=== PATIENT | male | born 1980 | race African-American/Black ===

== ENCOUNTER 2024-02-24 11:00 | Emergency (ER) | payer MEDICAID ==
[~2024-02-24] VITALS: Ht 182.9 cm; Wt 65.0 kg
[2024-02-24 11:09] VITALS: TEMP 98.4; O2SAT 100
[2024-02-24 13:19] LABS: BASOPHILS % 0.7 % (0.0-2.0); DIFFERENTIAL COMMENT 0; EOSINOPHILS % 2.5 % (0.0-5.0); HEMATOCRIT. 42.6 % (42.0-52.0); LYMPHOCYTES % 32.7 % (20.0-50.0); MEAN CORPUSCULAR HEMOGLOBIN 29.4 pg (28.0-32.0); MEAN CORPUSCULAR HGB CONC 32.9 g/dL (31.0-37.0); MEAN CORPUSCULAR VOLUME 89.5 fL (80.0-94.0); MEAN PLATELET VOLUME 10.1 fl (7.4-10.4); MONOCYTES % 8.5 % (2.0-8.0); NEUTROPHILS % 55.6 % (40.0-76.0); PLATELET 143 x1000/uL (130-400); RED BLOOD CELL COUNT 4.76 mill/uL (4.7-6.1); RED CELL DISTRIBUTION WIDTH 15.1 % (11.6-14.6); WHITE BLOOD COUNT 5.9 x1000/uL (4.5-11.0)
[2024-02-24 15:00] LABS: CALCIUM 9.3 mg/dL (8.7-10.4); CARBON DIOXIDE 26 mEq/L (21-32)
[2024-02-24 15:03] LABS: CHLORIDE 108 mEq/L (98-107); POTASSIUM 4.2 mEq/L (3.5-5.1); SODIUM 142 mEq/L (136-145)
[2024-02-24 15:05] LABS: CREATININE 1.1 mg/dL (0.6-1.3); GLUCOSE 78 mg/dL (70-105); UREA NITROGEN BLOOD 6 mg/dL (9-23)
[2024-02-24] MEDS: TRAMADOL 50MG TABLET PO NR (15:05)
[2024-02-24] MEDS: IBUPROFEN 600MG TABLET PO NR (15:05)
[2024-02-24 15:10] VITALS: BP 142/85; PULSE 63; RESP 16; O2SAT 100
[2024-02-24] MEDS ORDERED: TRAM-534 MT (16:09)
== END 2024-02-24 16:30 | disposition home or self-care (01) ==
LOC: ER 11:30
DX: M79.601 Pain in right arm (principal); R51.9 Headache, unspecified; Z86.73 Personal history of transient ischemic attack (TIA), and cerebral infarction without residual deficits
CPT/HCPCS: 36415; 80048; 85025; 99284

== ENCOUNTER 2024-04-25 12:14 | Emergency (ER) | payer MEDICAID ==
[~2024-04-25] VITALS: Ht 165.1 cm; Wt 73.0 kg
[~2024-04-25 12:14] MED LIST: TRAM-534 MT
[2024-04-25 12:15] VITALS: BP 115/70; PULSE 96; RESP 18; TEMP 98.4; O2SAT 98
[2024-04-25] MEDS: LIDOCAINE HCL/PF 1% 10 MG/ML 5ML VIAL INFIL ONE (13:40)
[2024-04-25] MEDS: BACITRACIN ZINC OINT UDPKT TOP ONE (13:41)
[2024-04-25] MEDS ORDERED: CEPH500T MT (13:58)
[2024-04-25] MEDS ORDERED: SULF1TAB48 MT (13:58)
[2024-04-25] MEDS: IBUPROFEN 600MG TABLET PO ONE (14:22)
== END 2024-04-25 14:24 | disposition home or self-care (01) ==
LOC: ER 12:14
DX: L02.01 Cutaneous abscess of face (principal)
CPT/HCPCS: 10060; 99283; J3490; Z7610 ×3